=== PATIENT | male | born 1940 | race Caucasian/White ===

== ENCOUNTER 2019-03-14 04:01 | Inpatient (IN) ==
--- NOTE | 2019-03-14 04:21 | PROVIDER DOCUMENTATION ---
HPI-Abdominal Pain/GI Problem - General Chief Complaint: Abdominal Pain Stated Complaint: ABD PAIN Time Seen by Provider: 03/14/19 04:20 Source: patient Allergies/Adverse Reactions: Patient Allergies Allergy/AdvReac Type Severity Reaction Status Date / Time No Known Allergies Allergy Verified 04/14/18 09:45 Home Medications: Home Medication List Medication Instructions Recorded Confirmed Last Taken Type Clopidogrel Bisulfate [Plavix] 75 mg PO DAILY 04/29/14 03/14/19 06/29/17 08:00 History Omeprazole 40 mg PO DAILY 06/29/17 03/14/19 06/29/17 08:00 History Aspirin EC 81 mg PO DAILY 04/14/18 03/14/19 Unknown History Multivitamin with Minerals 1 each PO DAILY 04/14/18 03/14/19 Unknown History [Multivitamins with Minerals] Polyethylene Glycol 3350 [Miralax] 1 cap PO DAILY PRN 04/14/18 03/14/19 Unknown History Pravastatin Sodium 40 mg PO HS 04/14/18 03/14/19 Unknown History Insulin NPH Hum/Reg Insulin Hm 100 unit SQ DIRECTED 03/14/19 03/14/19 Unknown History [Relion Novolin 70-30 Vial] Metformin [Glucophage] 500 mg PO BID 03/14/19 03/14/19 Unknown History - History of Present Illness-ABD Nature of Presenting Problems: Patient is a 79 year old white male with history of multiple abdominal surgeries (S/P ruptured appendix,abdominal hernia repair), CAD (S/P CABG, MIX2),and diabetes who presents with abdominal distention, nausea, and upper abdomen pain since yesterday evening. No relief with GasX or enema. Patient also reports chronic chest discomfort. Followed by Dr. STEFANIE Sung. Abdominal Pain Onset Location: reports: other (upper abdomen) Quality of Pain: reports: aching Onset/Duration: reports: other (yesterday afternoon) Timing: reports: still present Exposure to sick contacts?: No Modifying Factors: worse with: vomiting Review of Systems - Adult - REVIEW OF SYSTEMS - ADULT Constitutional: denies: chills, fever Eyes: reports: no symptoms reported Ears, Nose, Mouth & Throat: reports: no symptoms reported Cardiovascular: reports: see HPI Respiratory: denies: shortness of breath Gastrointestinal: reports: abdominal pain, constipation, nausea. denies: diarrhea, vomiting Genitourinary: denies: dysuria Musculoskeletal: reports: no symptoms reported Integumentary: reports: no symptoms reported Neurological: reports: no symptoms reported Psychiatric: reports: no symptoms reported Endocrine: reports: no symptoms reported Hematologic/Lymphatic: reports: no symptoms reported Allergic/Immunologic: reports: no symptoms reported All Other Systems: Reviewed and Negative Past History - Adult - PAST MEDICAL HISTORY-ADULT Review of Records: reports: Old Records Reviewed, Nursing Assessment Review, Medications Reviewed, Social history reviewed & non-contributory. Major Childhood Illnesses: reports: denies history Cardiovascular: reports: cardiac disease, CAD, HTN, hyperlipidemia, DC Respiratory: reports: denies history Gastrointestinal: reports: GERD, obstruction, other (constipation) Obstetrical/Gynecological: reports: denies history Genitourinary: reports: denies history Musculoskeletal: reports: denies history Neurological: reports: denies history Psychiatric: reports: denies history Endocrine/Immune: reports: Diabetes Other Conditions: reports: denies history - PRIOR SURGERIES/PROCEDURES Surgical/Procedure History: reports: reviewed, not pertinent, appendectomy, hysterectomy - IMMUNIZATION STATUS Childhood Immunizations: See Nurse Assessment Flu Vaccine: See Nurse Assessment - FAMILY HISTORY Family History: reviewed, not pertinent - SOCIAL HISTORY Smoking: denies Substance Use: denies Alcohol Use Frequency: occasionally Living Situation: family Physical Exam-General - PHYSICAL EXAM-ADULT Initial Vital Signs Reviewed: Yes - CONSTITUTIONAL General Appearance: alert, obese, other (cognitive dysfunction) - HEAD, EARS, NOSE, MOUTH & THROAT HENMT: normocephalic/atraumatic, moist mucous membranes, normal ENT inspection, pharynx normal - NECK Neck: non-tender, full range of motion, supple - RESPIRATORY Respiratory: lungs clear, other (large midline scar) - CARDIOVASCULAR Cardiovascular: regular rate, rhythm - GASTROINTESTINAL (ABDOMEN) Abdominal Exam: distended, other (large midline scar) - MUSCULOSKELETAL Back Exam: normal inspection, no CVA tenderness, no vertebral tenderness Extremity: normal range of motion, non-tender Peripheral Pulses: radial (R): 2+, radial (L): 2+ - SKIN Integumentary: normal color, normal turgor, warm/dry - NEUROLOGIC Neurologic: grossly normal - PSYCHIATRIC Psych/Mental Status: oriented x 3, anxious Progress - PLAN OF CARE/RESULTS Progress/Plan/Lab Results: Vital Signs - 8 hr 03/14/19 04:06 Temperature 97.4 F L Pulse Rate 93 H Respiratory Rate 20 Blood Pressure 146/77 O2 Sat by Pulse Oximetry 94 L Orders Category Date Time Status Saline Loc DIRECTED Care 03/14/19 04:21 Ordered NPO Diet 03/14/19 04:21 Ordered CBC WITH ELECTRONIC DIFF [HEME] Stat Lab 03/14/19 04:21 Ordered COMPREHENSIVE METABOLIC PANEL [CHEM] Stat Lab 03/14/19 04:21 Uncollected LIPASE [CHEM] Stat Lab 03/14/19 04:[address] W/POSS RFLX CULT [URINALYSIS] Stat Lab 03/14/19 04:21 U ncollected Result Diagrams: 03/14/19 04:35 03/14/19 04:35 - CT/MRI 1 CT Study: Abdomen, Pelvis Impression: Abnormal, See EMR Report ([facility] - [address] [facility], [address], [place] [address] [facility] - [address] [place] [address] Department of Imaging Patient: LAMAR MIDDLETON WADM Date: 03/14/19MR#: [id number] : 1940DM Status: REG ERAcct#: [id number] Age/Sex: 79/MRoom/Bed: Loc: P.ED Ordering Physician: Elroy Hodge MD Family Physician: Wolfgang Sung Reason for Procedure: nausea,vomiting,abdominal pain ___ Signed EXAM: CT ABD/PELVIS W/IV CONT ONLY - 03/14/2019 HISTORY: nausea,vomiting,abdominal pain TECHNIQUE: CT abdomen/pelvis with intravenous contrast. No oral contrast administered per request of the referring provider. COMPARISON: 06/29/2017 FINDINGS: The stomach is distended, primarily with fluid. There is [id number] distention of proximal and mid small bowel with fluid and air. There is some retained fluid in distal small bowel, but there is no substantial distention of distal small bowel. Considerations include developing small bowel obstruction and gastroenteritis. There is no discrete obstructing lesion identified. There is a fat-containing umbilical hernia, but there is no bowel containing hernia identified. There is no free air, free fluid, or abscess identified. There is mild uncomplicated colonic diverticulosis. There are no acute abnormalities of the liver, spleen, adrenal glands, pancreas identified. There are no calcified gallstones or pericholecystic inflammation identified. There are apparent small nonobstructing stones in the left kidney. There is no obstructing renal stone or hydronephrosis identified. There is no adenopathy identified. There are athe rosclerotic calcifications noted. There is a pars interarticularis defect noted at L5 on the right. IMPRESSION: Distended stomach. Mildly to moderately distended proximal and mid small bowel. Considerations include developing small bowel obstruction and gastroenteritis. There is no discrete obstructing lesion identified. This report was discussed with Dr. Ortega on 03/14/2019 at 8:33 AM and was readback. This exam was performed using automated exposure control, adjustment of mA or kV according to patient size, and/or use of iterative reconstruction technique. Electronically signed by Chino Harry 03/14/2019 8:41 AM 03/14/19 0841 Interpreting Physician: Chino Harry MD Dictated Date/Time: 03/14/19 0833 cc: Elroy Hodge MD; Wolfgang Sung) - CONSULTS/PCP/HOSPITALIST Notification #1 *Consult/PCP/Hospitalist*: Dr Avendano Time Discussed: :27 Consult Disposition: Will see in ED, Admit - CHANGE OF SHIFT REPORT (ED Provider) 1 Report Given and Care Transferred to:: Dr. Ortega Time of Transfer: 07:00 Items Pending: CT/MRI Results Departure - Departure Date of Disposition Decision: 03/14/19 Time of Disposition Decision: 10:27 DIAGNOSIS: Small bowel obstruction, Abdominal pain Disposition: ADMITTED INPATIENT 09 Certified Medical Emergency: Emergent Condition: Fair Referrals and Follow-Ups: Wolfgang Sung [Primary Care Provider] - - Critical Care Note This patient required my direct & personal management of CC.: No Attestation - Physician/ SWATHI Attestation Patient care was provided by Advanced Practice Provider:: No The physician spent face to face time with patient:: Yes Advanced Practice Provider documentation review:: Supervising physician onsite and consulted in the evaluation and care of this patient. The physician did have a face to face encounter with the patient.
--- NOTE | 2019-03-14 05:04 | EKG Report ---
Test Performed on : 03/14/2019 04:39:42 AM Test Reason : pain Blood Pressure : / mmHG Vent. Rate : 095 BPM Atrial Rate : 095 BPM P-R Int : 182 ms QRS Dur : 144 ms QT Int : 400 ms P-R-T Axes : 056 077 027 degrees QTc Int : 502 ms Normal sinus rhythm. Possible Left atrial enlargement Right bundle branch block Cannot rule out Inferior infarct , age undetermined Abnormal ECG When compared with ECG of 08-NOV-2013 06:21, Right bundle branch block is now present Minimal criteria for Inferior infarct are now present Unconfirmed Result
[2019-03-14 05:09] LABS: BASO# 0.03 X1000 (0.0-0.2); BASO% 0.2 % (0.0-0.8); EOS# 0.02 X1000 (0.0-0.7); EOS% 0.1 % (0.0-10.0); HEMATOCRIT 44.6 % (42.0-52.0); IMM GRAN# 0.09 X1000 (0.0-0.04); IMM GRAN% 0.6 % (0.0-0.5); LYMPH# 1.56 X1000 (1.2-3.4); LYMPH% 10.4 % (20.5-51.1); MCH 27.8 PG (27-31); MCHC 33.6 g/dL (33-37); MCV 82.7 FL (81-99); MONO# 0.98 X1000 (0.11-0.59); MONO% 6.5 % (1.7-9.3); MPV 12.2 FL (7.4-10.4); NEUT# 12.39 X1000 (1.4-6.5); NEUT% 82.2 % (42.2-75.2); PLT 182 X1000 (130-400); RBC 5.39 XMIL (4.7-6.1); RDW 14.8 % (11.5-14.5); WBC 15.07 X1000 (4.8-10.8)
[2019-03-14 05:14] LABS: BILIRUBIN URINE NEGATIVE (NEGATIVE); BLOOD URINE 1+ (NEGATIVE); CLARITY SL. CLOUDY (CLEAR); COLOR YELLOW; KETONE URINE 3+(Large) mg/dL (NEGATIVE); LEUKOCYTES URINE 2+ (NEGATIVE); NITRITE URINE NEGATIVE (NEGATIVE); PROTEIN URINE TRACE mg/dL (NEGATIVE); URINE BACTERIA 2+ /HFP; URINE EPITHELIAL CELLS <10 /HPF (<10); URINE SOURCE CLEAN CATCH; UROBILINOGEN URINE NORMAL
[2019-03-14] MEDS ORDERED: ROCEPHIN 1 GM in NS 50 ML IV ONE (05:29)
[2019-03-14] MEDS ORDERED: ZOFRAN IV ONE (05:52)
[2019-03-14 05:55] LABS: AGAP 16; ALBUMIN 4.9 g/dL (3.5-5.0); ALKALINE PHOSPHATASE 90 U/L (32-122); BUN 25 mg/dL (8-22); CALCIUM 10.2 mg/dL (8.8-10.2); CHLORIDE 101 mmol/L (98-107); COSMO 296; ESTIMATED GFR > 60; GLUCOSE 360 mg/dL (70-104); GOT 25 U/L (10-34); GPT 25 U/L (10-44); LIPASE 23 U/L (13-60); POTASSIUM 4.4 mmol/L (3.5-5.1); SODIUM 139 mmol/L (136-145); TCO2 22 mmol/L (25-35); TOTAL PROTEIN 7.2 g/dL (6.3-8.3)
[2019-03-14] MEDS ORDERED: HUMULIN R SUBQ ONE (07:49)
[2019-03-14] MEDS ORDERED: HUMULIN R (PARKWAY) ONE (08:27)
--- NOTE | 2019-03-14 08:43 | Diag Imaging Result Doc PS360 ---
EXAM: CT ABD/PELVIS W/IV CONT ONLY - 03/14/2019 HISTORY: nausea,vomiting,abdominal pain TECHNIQUE: CT abdomen/pelvis with intravenous contrast. No oral contrast administered per request of the referring provider. COMPARISON: 06/29/2017 FINDINGS: The stomach is distended, primarily with fluid. There is rprf-sd-fkurptep distention of proximal and mid small bowel with fluid and air. There is some retained fluid in distal small bowel, but there is no substantial distention of distal small bowel. Considerations include developing small bowel obstruction and gastroenteritis. There is no discrete obstructing lesion identified. There is a fat-containing umbilical hernia, but there is no bowel containing hernia identified. There is no free air, free fluid, or abscess identified. There is mild uncomplicated colonic diverticulosis. There are no acute abnormalities of the liver, spleen, adrenal glands, pancreas identified. There are no calcified gallstones or pericholecystic inflammation identified. There are apparent small nonobstructing stones in the left kidney. There is no obstructing renal stone or hydronephrosis identified. There is no adenopathy identified. There are atherosclerotic calcifications noted. There is a pars interarticularis defect noted at L5 on the right. IMPRESSION: Distended stomach. Mildly to moderately distended proximal and mid small bowel. Considerations include developing small bowel obstruction and gastroenteritis. There is no discrete obstructing lesion identified. This report was discussed with Dr. Ortega on 03/14/2019 at 8:33 AM and was readback. This exam was performed using automated exposure control, adjustment of mA or kV according to patient size, and/or use of iterative reconstruction technique. Electronically signed by Chino Harry 03/14/2019 8:41 AM
[2019-03-14] MEDS ORDERED: ZOFRAN IV PRN (11:14)
[2019-03-14] MEDS ORDERED: NS 1,000 ML IV SCH (11:30)
[2019-03-14] MEDS ORDERED: SODIUM CHLORIDE 0.9% INJ SCH (11:30)
--- NOTE | 2019-03-14 11:39 | HISTORY AND PHYSICAL ---
ADDENDUM: This is a 79-year-old gentleman whom I saw at the emergency room in room 6, and agree with the assessment and plan of nurse practitioner, Margo Smith. He has been having abdominal pain with abdominal distention, and he is using enemas to relieve his obstruction. He has been having some watery diarrhea, however. His CT scan of the abdomen showed possible early small- bowel obstruction with possible acute gastroenteritis. I believe this is all related to his enemas, and we are going to admit him to the hospital and treat him conservatively by keeping him n.p.o. and try to see if his partial small-bowel obstruction can get better conservatively. cc: Les Avendano MD
[2019-03-14] MEDS: PROTONIX IV SCH (13:09)
--- NOTE | 2019-03-14 13:19 | HISTORY AND PHYSICAL ---
CHIEF COMPLAINT: Abdominal pain, nausea, and vomiting. HISTORY OF PRESENT ILLNESS: This is a 79-year-old gentleman who presents to the emergency room complaining of abdominal distention, nausea, and upper abdominal pain since yesterday evening. He tried, with no relief, Gas-X. He did give himself 2 small enemas. He states he had a large bowel movement, but had no relief in symptoms. He did state that he vomited twice. After the second time he vomited, he did feel somewhat better. CT scan of the abdomen and pelvis revealed a distended stomach, qttr-ek-hhdnkzzjur distended proximal and mid small bowel with considerations that include developing small-bowel obstruction and gastroenteritis with no discrete obstructing lesion identified. The patient did state that over the last 30 to 45 minutes, he has started belching and that he has started passing gas, and he does feel some relief. PAST MEDICAL HISTORY: 1. Diabetes mellitus. 2. Hypertension. 3. CAD, status post ME x2 with PCI. PAST SURGICAL HISTORY: 1. Cataract surgery. 2. Right knee surgery. 3. Ruptured appendix. 4. Abdominal hernia repair. SOCIAL HISTORY: He denies alcohol, tobacco, or illicit drug use. ALLERGIES: No known drug allergies. FAMILY HISTORY: His father of a massive heart attack. His mother had hypertension. He has 2 daughters that are in good health. REVIEW OF SYSTEMS: Discussed with the patient with pertinent positives stated in the HPI. He denied any syncope or dizziness, any chest pain or palpitations, any diarrhea or constipation, any black or bloody vomitus or stools, shortness of breath, cough, fever, chills, any hematuria, dysuria, frequency, urgency. PHYSICAL EXAMINATION: GENERAL: This is a 79-year-old gentleman who is sitting up on the stretcher in the emergency room in no distress. VITAL SIGNS: Blood pressure is 112/69 with a heart rate of 95, respirations are 18, temperature is 98.3 degrees oral, with room air saturation of 95%. EYES: Pupils are equal, round, react to light. EOMs are intact. Sclerae are anicteric. HENT: Head is normocephalic, atraumatic. Mucous membranes are moist. NECK: Supple with trachea midline. CARDIOVASCULAR: Regular rate and rhythm. S1 and S2 appreciated. EXTREMITIES: He has no lower extremity edema. Peripheral pulses are palpable x4 extremities. Calves are nontender to palpation. GASTROINTESTINAL: Abdomen is distended. It is nontender. He has bowel sounds in all 4 quadrants. GENITOURINARY: No CVA nor suprapubic tenderness. NEUROLOGIC: He is alert and oriented x3. SKIN: Warm and dry. LABORATORY DATA: WBC is 15, with hemoglobin 15, hematocrit 44.6, platelets of 182,000. Sodium 139, potassium 4.4, BUN 25, creatinine 1, with a glucose of 360. Troponin is negative. Lipase is 23. Urinalysis is a voided specimen with 1+ blood, with 10 to 20 microscopic white blood cells, 10 to 20 microscopic red blood cells, less than 10 epithelial cells, and 2+ bacteria. IMAGING: CT of the abdomen and pelvis revealed a distended stomach, mozlwm-rx-effrcqlefg distended proximal and mid small bowel. Considerations include developing small-bowel obstruction and gastroenteritis. There is no discrete obstructing lesion identified. ASSESSMENT: 1. Small-bowel obstruction versus gastroenteritis. 2. Abdominal pain. 3. Nausea and vomiting. 4. Diabetes mellitus. 5. Hypertension. 6. Coronary artery disease. PLAN: The patient will be admitted to the medical/surgical floor. He will be placed on telemetry. He will remain n.p.o. He has been encouraged to walk, have him up in the chair at least t.i.d. and p.r.n. Will continue with IV hydration, using Zofran for nausea, Protonix. Urine culture will be sent. Rocephin daily, and further antibiotics will be culture driven. Placed on pattern blood glucose with sliding scale insulin. Will repeat a KUB in the morning. Plan was discussed with Dr. Avendano. Further treatments pending hospital course. Dictated by RAJI Woods for Les Avendano MD cc: RAJI Woods MD
--- NOTE | 2019-03-14 13:28 | Diag Imaging Result Doc PS360 ---
EXAM: KUB ABDOMEN - 03/14/2019 HISTORY: SBO? TECHNIQUE: KUB abdomen COMPARISON: 06/29/2017 abdominal radiographs, 03/14/2019 CT abdomen/pelvis FINDINGS: There is gaseous distention of the stomach, somewhat similar to the prior radiographs. There is gas visible in nondistended to mildly distended small bowel. There is gas visible in mostly nondistended colon. IMPRESSION: Gaseous distention of stomach. Mild gaseous small bowel distention. Electronically signed by Chino Harry 03/14/2019 1:26 PM
[2019-03-14] MEDS: NS 1,000 ML IV SCH ×2 (15:52→17:01)
[2019-03-14] MEDS: HUMALOG (PARKWAY) SUBQ SCH ×2 (17:01→23:09)
[2019-03-15] MEDS: ROCEPHIN 1 GM in NS 50 ML IV SCH (05:17)
[2019-03-15] MEDS: NS 1,000 ML IV SCH ×3 (05:17→20:25)
[2019-03-15 06:27] LABS: BASO# 0.02 X1000 (0.0-0.2); BASO% 0.3 % (0.0-0.8); EOS# 0.17 X1000 (0.0-0.7); EOS% 2.4 % (0.0-10.0); HEMATOCRIT 40.4 % (42.0-52.0); HEMOGLOBIN 12.9 g/dL (14.0-18.0); IMM GRAN# 0.07 X1000 (0.0-0.04); LYMPH# 1.59 X1000 (1.2-3.4); LYMPH% 22.3 % (20.5-51.1); MCH 27.4 PG (27-31); MCHC 31.9 g/dL (33-37); MONO# 0.68 X1000 (0.11-0.59); MONO% 9.6 % (1.7-9.3); MPV 12.3 FL (7.4-10.4); NEUT# 4.59 X1000 (1.4-6.5); NEUT% 64.4 % (42.2-75.2); PLT 130 X1000 (130-400); RDW 15.4 % (11.5-14.5); WBC 7.12 X1000 (4.8-10.8)
[2019-03-15] MEDS: HUMALOG (PARKWAY) SUBQ SCH ×4 (06:50→20:25)
[2019-03-15 07:01] LABS: AGAP 12; ALBUMIN 3.7 g/dL (3.5-5.0); ALKALINE PHOSPHATASE 67 U/L (32-122); BUN 22 mg/dL (8-22); CALCIUM 8.7 mg/dL (8.8-10.2); CHLORIDE 107 mmol/L (98-107); COSMO 297; ESTIMATED GFR > 60; GLUCOSE 248 mg/dL (70-104); GOT 19 U/L (10-34); GPT 19 U/L (10-44); SODIUM 143 mmol/L (136-145); TCO2 25 mmol/L (25-35)
--- NOTE | 2019-03-15 07:35 | Diag Imaging Result Doc PS360 ---
EXAM: KUB ABDOMEN HISTORY: sbo TECHNIQUE: Three views COMPARISON: 03/14/2019 FINDINGS: There is air and stool throughout the colon. No organomegaly. The calcifications in the left upper quadrant believed to be vasculature. Mild degenerative bone spurs. IMPRESSION: Mild constipation. No definite obstruction. Electronically signed by Marcus Lewis 03/15/2019 7:33 AM
[2019-03-15] MEDS: PROTONIX IV SCH (13:09)
--- NOTE | 2019-03-15 20:38 | PROGRESS NOTE ---
DATE: 03/15/2019 SUBJECTIVE: The patient notes that he is feeling a little bit better. Still having some nausea, but that is improved. Denies any fevers or chills. PHYSICAL EXAMINATION: Vital signs: Temperature 98, pulse 86, respiratory rate 10, BP 127/62. General: Patient is awake, alert, pleasant. Notes he has started passing some gas. Notes that his abdominal pain is better. HEENT: Normocephalic. Neck: Supple. Cardiovascular: Regular rate. Chest clear, nonlabored. Abdomen: Soft diffusely but minimally tender. Positive bowel sounds. Extremities: Moves all extremities. Neurologic: No changes. ASSESSMENT: 1. Small bowel obstruction. 2. Abdominal pain. 3. Nausea and vomiting. 4. Diabetes. 5. Hypertension. 6. Known coronary artery disease. PLAN: His KUB is actually improved. We are going to advance him to full liquids. Blood sugars elevated at 248. Continue sliding scale and we will follow. Hopefully he can improve and be discharged home over the next day or two. cc: Shakir Red MD
[2019-03-16] MEDS: ROCEPHIN 1 GM in NS 50 ML IV SCH (05:05)
[2019-03-16] MEDS: NS 1,000 ML IV SCH (06:41)
[2019-03-16] MEDS: HUMALOG (PARKWAY) SUBQ SCH (06:42)
[2019-03-16 08:47] VITALS: BP 142/61
--- NOTE | 2019-03-16 14:23 | DISCHARGE SUMMARY ---
ADMISSION DATE: 03/14/2019 DISCHARGE DATE: 03/16/2019 ADMISSION DIAGNOSES: 1. Small bowel obstruction versus gastroenteritis. 2. Abdominal pain. 3. Nausea, vomiting, intractable. 4. Diabetes mellitus type 2. 5. Hypertension. 6. CAD. DISCHARGE DIAGNOSES: 1. Small-bowel obstruction. 2. Abdominal pain. 3. Nausea and vomiting. 4. Diabetes. 5. Hypertension. 6. Known CAD. KUB improved. He is advanced in his diet. Sliding scale was increased for the elevated blood sugars. He was improved and was okay for discharge home. 7. Urinary tract infection positive for strep agalactiae group B. CONSULTATIONS: None. CASE MANAGEMENT: Dietetic Aide. SURGERIES AND PROCEDURES: None. HOSPITAL COURSE: Mr. Clem Rojas is a 79-year-old male presenting on 03/14/2019 to the Emergency Department with complaints of abdominal pain, distended distention, and nausea for 2 days. He gave himself two enemas with a bowel movement, but no relief. Had also taken Gas-X without relief. Apparently it was a large bowel movement. He vomited twice, some relief after vomiting. CT scan showed that abdominal pelvic distention, mild to moderate distention in the proximal mid small bowel with considerations including developing small bowel obstruction and gastroenteritis with no discrete obstructing lesion identified. Treatment included NPO status, IV fluids and antiemetics for nausea. IV Protonix and Rocephin was initiated for the gastroenteritis. He had blood sugars that were elevated. He was on sliding scale insulin. Over time, his KUB improved. He was advanced on his diet, tolerated that well and will be discharged home today. Rocephin was most likely initiated for the urinary tract infection. DISCHARGE VITAL SIGNS: Temperature 97.4 degrees, heart rate 66, respiratory rate 16, blood pressure 142/61, O2 saturation 98%. LAB DATA: White blood cells 7000, hemoglobin 12, hematocrit 40, platelet count 130,000. Sodium 143, potassium 4.0, BUN 22, creatinine is 1.0, glucose 248. Urine was positive for group B strep agalactiae. It was pansensitive and again he was on Rocephin. PERTINENT IMAGING: On 03/14/2019, abdominal pelvic CT, distended stomach, mild to moderate distention of the proximal mid small bowel. Consideration with small bowel obstruction and gastroenteritis. Abdominal x-ray, he had distention of stomach. Bowel gas, small bowel distention. Another x-ray on the , mild constipation, no obstruction. EKG normal sinus rhythm, rate 95, QTc 502. DISCHARGE MEDICATIONS: 1. Levaquin 750 mg p.o. daily for 7 days for the UTI. 2. Insulin NPH. 3. Pravastatin sodium 40 mg p.o. nightly. 4. Plavix 75 mg p.o. daily. 5. Omeprazole 40 mg p.o. daily. 6. Multivitamin with minerals 1 tablet p.o. daily. 7. MiraLAX 1 capsule p.o. daily. 8. Metformin 500 mg p.o. twice daily. 9. Aspirin enteric-coated 81 mg p.o. daily. DISCHARGE DIET: Regular diet. DISCHARGE ACTIVITY: As tolerated. DISCHARGE INSTRUCTIONS: If your condition changes, contact physician and/or return to the emergency department. Changes may include, but not limited to shortness of breath, increased fatigue, excessive bleeding, unexplained weight loss or gain, unmanageable pain, signs or symptoms of infection. PHYSICIAN FOLLOWUPS: Your primary care provider, Dr. Sung, in the next 2 weeks. DISCHARGE DISPOSITION: Home. Dictated by RAJI Orellana for Robby Schaefer MD Addendum: Patient seen and examined by myself. Agree with RAJI note. It reflects my assessment and plan. Patient is being discharged in stable condition. Will be seen by his PCP in two weeks. cc: RAJI Orellana MD [facility]
== END 2019-03-16 11:40 | disposition home or self-care (01) | DRG 389 ==
LOC: P.ED 04:01 → P.MEDSURG 12:42 → SUATTDRO 12:42
PROVIDERS: ATTEND Internal Medicine